=== PATIENT | male | born 1995 | race Caucasian/White ===

== ENCOUNTER 2021-03-11 00:26 | Emergency (ER) | payer SELFPAY ==
[~2021-03-11] VITALS: Ht 170.2 cm; Wt 55.0 kg
[2021-03-11] MEDS ORDERED: OLAN5TAB52 PO (02:01)
[2021-03-11] MEDS ORDERED: SERT-158 PO (02:01)
[2021-03-11 02:16] VITALS: BP 124/56
== END 2021-03-11 04:00 | disposition home or self-care (01) ==
LOC: EMS 00:28
DX: R10.13 Epigastric pain (principal); R11.2 Nausea with vomiting, unspecified; F19.10 Other psychoactive substance abuse, uncomplicated; F41.9 Anxiety disorder, unspecified; F32.9 Major depressive disorder, single episode, unspecified; F20.9 Schizophrenia, unspecified; F17.210 Nicotine dependence, cigarettes, uncomplicated; Z76.0 Encounter for issue of repeat prescription
CPT/HCPCS: 99283

== ENCOUNTER 2021-11-16 07:43 | Emergency (ER) | payer MEDICAID ==
[~2021-11-16] VITALS: Ht 167.6 cm; Wt 59.0 kg
[~2021-11-16 07:43] MED LIST: OLAN5TAB52 PO; SERT-158 PO
[2021-11-16 12:51] VITALS: BP 126/76
== END 2021-11-16 13:11 | disposition home or self-care (01) ==
LOC: EMS 07:51
DX: S00.83XA Contusion of other part of head, initial encounter (principal); F10.129 Alcohol abuse with intoxication, unspecified; F32.9 Major depressive disorder, single episode, unspecified; F41.9 Anxiety disorder, unspecified; F17.210 Nicotine dependence, cigarettes, uncomplicated; Y90.6 Blood alcohol level of 120-199 mg/100 ml; Z79.899 Other long term (current) drug therapy; Y04.0XXA Assault by unarmed brawl or fight, initial encounter; Y93.89 Activity, other specified; Y92.89 Other specified places as the place of occurrence of the external cause; Y99.8 Other external cause status
CPT/HCPCS: 36415; 70450; 70486; 72125; 99285; G0480

== ENCOUNTER 2021-11-19 11:27 | Inpatient (IN) | payer MEDICAID ==
[~2021-11-19] VITALS: Ht 167.6 cm; Wt 61.0 kg
[2021-11-19] MEDS ORDERED: HALOPERIDOL 5 MG TABLET PO PRN (19:30)
[2021-11-19] MEDS: ZOLPIDEM TARTRATE 10 MG TABLET PO PRN (20:28)
[2021-11-19] MEDS: LORazepam 2 MG TABLET PO PRN (20:28)
[2021-11-19 20:31] VITALS: BP 116/70
[2021-11-19] MEDS ORDERED: NICOTINE POLACRILEX 2 MG LOZENGE PO PRN (21:15)
[2021-11-20 06:18] VITALS: BP 116/64
[2021-11-20] MEDS ORDERED: IBUPROFEN 400 MG TABLET PO PRN (06:30)
[2021-11-20] MEDS ORDERED: GuaiFENesin/D-METHORPHAN [SUGAR-FREE] 200-20MG/10 ML SYRUP UDCUP PO PRN (06:30)
[2021-11-20] MEDS ORDERED: DOCUSATE SODIUM 100 MG CAPSULE PO PRN (06:30)
[2021-11-20] MEDS ORDERED: ALBUTEROL SULFATE HFA 90 MCG/PUFF 8 GM INHALER IH PRN (06:30)
[2021-11-20] MEDS ORDERED: NICOTINE 14 MG/24 HOUR PATCH TD PRN (06:30)
[2021-11-20] MEDS ORDERED: CloNIDine HCL 0.1 MG TABLET PO PRN (06:30)
[2021-11-20] MEDS ORDERED: ACETAMINOPHEN 325 MG TABLET PO PRN (06:30)
[2021-11-20] MEDS ORDERED: MAG HYDROX/AL HYDROX/SIMETH ES 30 ML SUSPENSION UDCUP PO PRN (06:30)
[2021-11-20] MEDS ORDERED: MAGNESIUM HYDROXIDE SUSPENSION 30 ML UDCUP PO PRN (06:30)
[2021-11-20] MEDS ORDERED: PETROLATUM,WHITE 28 GM JELLY TP PRN (06:30)
[2021-11-20] MEDS ORDERED: LOPERAMIDE HCL 2 MG CAPSULE PO PRN (06:30)
[2021-11-20 07:25] LABS: BASOPHILS % (AUTO) 0.5 % (0.0-2.0); EOSINOPHILS % (AUTO) 2.9 % (1.0-6.0); HEMATOCRIT 39.1 % (41-53); HEMOGLOBIN 13.3 g/dL (13.5-17.5); LYMPHOCYTES # (AUTO) 1.5 K/uL (1.0-4.8); LYMPHOCYTES % (AUTO) 25.7 % (22.0-44.0); MEAN CORPUSCULAR VOLUME 88 fL (80-100); MONOCYTES # (AUTO) 0.7 K/uL (0.1-1.0); MONOCYTES % (AUTO) 12.1 % (2.0-9.0); NEUTROPHILS # (AUTO) 3.4 K/uL (1.8-7.7); NEUTROPHILS % (AUTO) 58.8 % (40.0-70.0); PLATELET COUNT (AUTO) 348 K/uL (150-450); RED BLOOD CELL COUNT(AUTO) 4.43 MIL/uL (4.50-5.90)
[2021-11-20 07:34] LABS: HEMOGLOBIN A1C 5.4 % (3.8-5.6)
[2021-11-20 07:52] VITALS: BP 103/62
[2021-11-20 07:54] LABS: ALANINE AMINOTRANSFERASE 73 U/L (12-78); ALBUMIN 3.7 g/dL (3.4-5.0); ALKALINE PHOSPHATASE 89 U/L (46-116); ANION GAP 8 mmol/L (8-16); ASPARTATE AMINOTRANSFERASE 55 U/L (15-37); BILIRUBIN,TOTAL 0.5 mg/dL (0.1-1.0); CALCIUM, TOTAL 9.2 mg/dL (8.8-10.5); CARBON DIOXIDE 28 mmol/L (22-29); CHLORIDE 99 mmol/L (98-107); CHOL/HDL RATIO 5.4 (4.2-7.3); CHOLESTEROL 188 mg/dL (131-200); FREE T4 (FREE THYROXINE) 1.18 ng/dL (0.76-1.46); GLOMERULAR FILTR. RATE CALC > 60 mL/min (>60); GLUCOSE,RANDOM 86 mg/dL (70-110); HDL CHOLESTEROL 35 mg/dL (40-60); LDL CHOL (CALC.) 130 mg/dL (0-130); POTASSIUM 3.8 mmol/L (3.5-5.1); SODIUM SERUM 135 mmol/L (136-145); TRIGLYCERIDES 116 mg/dL (15-150); UREA NITROGEN, BLOOD 10 mg/dL (7-18)
[2021-11-20 08:11] VITALS: BP 103/62
[2021-11-20] MEDS: LORazepam 2 MG TABLET PO PRN ×2 (11:08→20:34)
[2021-11-20] MEDS: SERTRALINE HCL 50 MG TABLET PO SCH (14:26)
[2021-11-20] MEDS: NALTREXONE HCL 50 MG TABLET PO SCH (14:26)
[2021-11-20 16:34] VITALS: BP 113/76
[2021-11-20] MEDS: GABAPENTIN 300 MG CAPSULE PO SCH (17:00)
[2021-11-20] MEDS: TraZODone HCL 100 MG TABLET PO SCH (20:34)
[2021-11-21 06:37] VITALS: BP 118/75
[2021-11-21] MEDS: GABAPENTIN 300 MG CAPSULE PO SCH ×3 (08:02→17:07)
[2021-11-21] MEDS: NALTREXONE HCL 50 MG TABLET PO SCH (08:02)
[2021-11-21] MEDS: SERTRALINE HCL 50 MG TABLET PO SCH (08:02)
[2021-11-21 08:43] VITALS: BP 120/70
[2021-11-21] MEDS: LORazepam 2 MG TABLET PO PRN ×2 (09:32→14:58)
[2021-11-21] MEDS: ONDANSETRON HCL 4 MG TABLET PO PRN ×2 (14:58→22:58)
[2021-11-21 16:04] VITALS: BP 114/74
[2021-11-21] MEDS ORDERED: ONDANSETRON HCL 4 MG TABLET PO PRN (21:15)
[2021-11-21] MEDS ORDERED: ACETAMINOPHEN 325 MG TABLET PO PRN (21:15)
[2021-11-21] MEDS ORDERED: ALBUTEROL SULFATE HFA 90 MCG/PUFF 8 GM INHALER IH PRN (21:15)
[2021-11-21] MEDS ORDERED: IBUPROFEN 400 MG TABLET PO PRN (21:15)
[2021-11-21] MEDS ORDERED: NICOTINE 14 MG/24 HOUR PATCH TD PRN (21:15)
[2021-11-21] MEDS ORDERED: MAG HYDROX/AL HYDROX/SIMETH ES 30 ML SUSPENSION UDCUP PO PRN (21:15)
[2021-11-21] MEDS ORDERED: CloNIDine HCL 0.1 MG TABLET PO PRN (21:15)
[2021-11-21] MEDS ORDERED: GuaiFENesin/D-METHORPHAN [SUGAR-FREE] 200-20MG/10 ML SYRUP UDCUP PO PRN (21:15)
[2021-11-21] MEDS ORDERED: LOPERAMIDE HCL 2 MG CAPSULE PO PRN (21:15)
[2021-11-21] MEDS ORDERED: PETROLATUM,WHITE 28 GM JELLY TP PRN (21:15)
[2021-11-21] MEDS ORDERED: DOCUSATE SODIUM 100 MG CAPSULE PO PRN (21:15)
[2021-11-21] MEDS ORDERED: MAGNESIUM HYDROXIDE SUSPENSION 30 ML UDCUP PO PRN (21:15)
[2021-11-21] MEDS: TraZODone HCL 100 MG TABLET PO SCH (21:28)
[2021-11-21] MEDS: ZOLPIDEM TARTRATE 10 MG TABLET PO PRN (21:29)
[2021-11-22] MEDS: LORazepam 2 MG TABLET PO PRN ×2 (00:21→08:04)
[2021-11-22 05:46] VITALS: BP 125/87
[2021-11-22 08:04] VITALS: BP 131/85
[2021-11-22] MEDS: SERTRALINE HCL 50 MG TABLET PO SCH (08:04)
[2021-11-22] MEDS: GABAPENTIN 300 MG CAPSULE PO SCH ×2 (08:04→12:44)
[2021-11-22] MEDS: NALTREXONE HCL 50 MG TABLET PO SCH (08:04)
[2021-11-22] MEDS ORDERED: GABA-1181 PO (11:59)
[2021-11-22] MEDS ORDERED: TRAZ-257 PO (11:59)
[2021-11-22] MEDS ORDERED: NALT50TA PO (11:59)
[2021-11-22] MEDS ORDERED: SERT-439 PO (11:59)
== END 2021-11-22 13:15 | disposition home or self-care (01) | DRG 751 ==
LOC: B3A 19:34
PROVIDERS: ADMIT Psychiatry & Neurology Child & Adolescent Psychiatry; ATTEND Psychiatry & Neurology Child & Adolescent Psychiatry
DX: F33.2 Major depressive disorder, recurrent severe without psychotic features (principal); E87.1 Hypo-osmolality and hyponatremia; Z20.822 Contact with and (suspected) exposure to COVID-19; D64.9 Anemia, unspecified; F10.10 Alcohol abuse, uncomplicated; F20.9 Schizophrenia, unspecified; Z59.00 Homelessness unspecified
CPT/HCPCS: 80053; 80061; 83036; 84439; 84443; 85025; Q0162